=== PATIENT | male | born 1930 | race Caucasian/White ===

== ENCOUNTER 2016-11-23 15:35 | Emergency (ER) | payer BC, OTHER ==
--- NOTE | 2016-11-23 15:48 | PDOC ---
History of Present Illness <Ronnie Sánchez - Last Filed: 11/23/16 18:23> - General History Source: Patient Exam Limitations: No Limitations - History of Present Illness Initial Comments: 11/23/16 16:14 The patient is a 86 year old male, with significant past medical history of chronic leg pain, who presents today complaining of right leg pain that radiates to the lower back. The patient states that he has chronic right leg pain for years; however, the pain has never been like this or radiated to his back. The patient states that his right leg is more swollen than usual. Denies hematuria or any other urinary issues. Denies falling or any trauma. Denies fever, chills, nausea, vomiting. Allergies: none reported Surgical Hx: knee arthroscopy (over 20 years ago) PCP- Dr. Askew <Yamini Barclay - Last Filed: 11/23/16 18:28> - General Chief Complaint: Pain Stated Complaint: RIGHT LBP & LEG PAIN Time Seen by Provider: 11/23/16 15:48 Past History <Ronnie Sánchez - Last Filed: 11/23/16 18:23> <Yamini Barclay - Last Filed: 11/23/16 18:28> - Past Medical History Allergies/Adverse Reactions: Allergies Allergy/AdvReac Type Severity Reaction Status Date / Time No Known Allergies Allergy Verified 11/23/16 15:47 Home Medications: Ambulatory Orders Aspirin [ASA -] 325 mg PO DAILY 11/23/16 Ciprofloxacin [Cipro -] 250 mg PO BID #10 tablet 11/23/16 Review of Systems - Review of Systems Able to Perform ROS?: Yes Comments:: 11/23/16 16:15 CONSTITUTIONAL: No: Chills, Diaphoresis, Fever, Loss of Appetite HEENTM: No: Eye Pain, Blurred Vision, Nose Pain, Nose Bleeding RESPIRATORY: No: Cough, Orthopnea, Shortness of Breath, CARDIAC (ROS): No: Chest Pain, Edema, Irregular Heart Rate, Lightheadedness ABD/GI: No: Abd. Pain w/ defecation, Constipated, Diarrhea, Nausea, Vomiting, Indigestion MUSCULOSKELETAL: Yes: Back Pain, RLE pain. No: Gout, Joint Pain, Joint Swelling, Muscle Pain, Muscle Weakness, Neck Pain, Joint Stiffness, Other INTEGUMENTARY: No: Bruising, Change in Color, Change in Hair/Nails, Dryness, Erythema, Flushing, Lesions, Lumps, Pallor, Pruritus, Rash, Sweating, Other NEUROLGOICAL: No: Headache, Numbness, Paresthesia, Tingling, Tremors, Weakness , Unsteady Gait Dizziness <Yamini Barclay - Last Filed: 11/23/16 18:28> *Physical Exam - Vital Signs Last Vital Signs Temp Pulse Resp BP Pulse Ox 97.3 F L 72 18 175/92 98 11/23/16 15:46 11/23/16 15:46 11/23/16 15:46 11/23/16 15:46 11/23/16 15:46 - Physical Exam Comments: 11/23/16 16:15 GENERAL APPEARANCE: Yes: Appropriately Dressed, Nourished. No: Apparent Distress, HEENT: positive: EOMI, JOLENE, Normal ENT Inspection, Normal Voice, TMs Normal, Pharynx Normal. NECK: positive: Trachea midline, Normal Thyroid, Supple. negative: Tender, Rigid, Carotid bruit, Decreased range of motion RESPIRATORY/CHEST: positive: Lungs Clear, Normal Breath Sounds. negative: Decreased Breath Sounds, Crackles, Rales, Rhonchi, Stridor, Wheezing CARDIOVASCULAR: positive: Regular Rate, Regular Rhythm, S1, S2. negative: Edema , JVD VASCULAR PULSES: Femoral (R): 4+, Femoral (L): 4+, Carotid (R): 4+, Carotid (L) : 4+, Dorsalis-Pedis (R): 4+, Doralis-Pedis (L): 4+ Gastrointestinal/Abdominal: positive: Normal Bowel Sounds, Flat, Soft. MUSCULOSKELETAL: positive: Back has full ROM. No C-spine tenderness. No lumbar tenderness. Normal Inspection. EXTREMITY: positive: RLE: Right leg swollen with varicose veins. Minimal calf tenderness. Normal Capillary Refill, Normal Inspection, Normal Range of Motion. INTEGUMENTARY: positive: Normal Color, Dry, Warm. <Yamini Barclay - Last Filed: 11/23/16 18:28> ED Treatment Course - ADDITIONAL ORDERS Additional order review: 11/23/16 18:23 Pt has lower back pain , US leg negative for DVT. Physical exam unremarkable for spinous process tenderness on exam, full ROM, no neurological exam Denies incontinence and weakness, upon further review pt admits to urinary problems for last 2 weeks Has a UTI, will treat] If worsen will return to ER Family is in agreement with plan <Ronnie Sánchez - Last Filed: 11/23/16 18:23> - RADIOLOGY Radiograph Interpretation: 11/23/16 18:28 EXAM#: TYPE/EXAM: RESULT: [id number] US/DUPLEX VASCUL US-1 LEG Right leg swelling. Rule out DVT Right lower extremity Doppler venous ultrasound. Grayscale, pulsed Doppler and color Doppler interrogation of the right lower extremity deep venous system was performed. The right common femoral vein, superficial femoral vein, popliteal and posterior tibial vein were identified with a normal phasic waveform, adequate compressibility and adequate response to augmentation. Visualized portion of the greater saphenous and deep femoral vein are patent No Bryan's cyst is identified in the popliteal fossa. No specific calcified plaques in the right common femoral artery. Impression: There is no gross evidence of deep venous thromboses in the right lower extremity. Reported By: Lucina Posey MD 11/23/161817 <Yamini Barclay - Last Filed: 11/23/16 18:28> *DC/Admit/Observation/Transfer - Discharge Dispostion Admit: No <Ronnie Sánchez - Last Filed: 11/23/16 18:23> - Attestations Scribe Attestion: 11/23/16 16:16 Documentation prepared by AVEL Campbell, acting as medical transport specialist for Ronnie Sánchez MD. <Yamini Barclay - Last Filed: 11/23/16 18:28> Diagnosis at time of Disposition: Arthritis UTI (urinary tract infection) Qualifiers: Urinary tract infection type: acute cystitis Hematuria presence: without hematuria Qualified Code(s): N30.00 - Acute cystitis without hematuria - Discharge Dispostion Condition at time of disposition: Good - Prescriptions Prescriptions: Ciprofloxacin [Cipro -] 250 mg PO BID #10 tablet - Referrals Referrals: Laron Askew [Primary Care Provider] - - Patient Instructions Printed Discharge Instructions: Smoking Cessation for Older Adults: It's Not Too Late!, DI for Urinary Tract Infection (UTI) Additional Instructions: Fluids, rest, Tylenol Cipro 250 mg 2x/day for 5 days If worsen return to ER
[2016-11-23 16:06] VITALS: BP 175/92; PULSE 72; TEMP 97.3; BMI 19.2
[2016-11-23 16:52] LABS: URINE APPEARANCE Slightly; URINE BILIRUBIN Negative (NEGATIVE); URINE BLOOD 1+ (NEGATIVE); URINE GLUCOSE (UA) Negative (NEGATIVE); URINE KETONE Negative (NEGATIVE); URINE LEUK ESTERASE 3+ (NEGATIVE); URINE NITRITE Positive (NEGATIVE); URINE PROTEIN 1+ (NEGATIVE); URINE UROBILINOGEN 0.2 E.U/dl (0.2-1.0)
[2016-11-23 16:53] LABS: URINE COLOR YELLOW
[2016-11-23 17:14] LABS: URINE BACTERIA MODERATE /hpf (NEGATIVE); URINE WBC 50-80 (3-5)
[2016-11-23] MEDS ORDERED: CIPROFLOXACIN 250 MG TABLET (RESTRICTED TO ID) PO ONE ×2 (18:13→18:22)
== END 2016-11-23 18:33 | disposition home or self-care (01) ==
LOC: FER 15:35
DX: N30.00 Acute cystitis without hematuria (principal); M19.90 Unspecified osteoarthritis, unspecified site; G89.29 Other chronic pain; Z79.82 Long term (current) use of aspirin
CPT/HCPCS: 81003; 81015; 93971-TC; 99283-25

== ENCOUNTER 2016-12-16 08:56 | Day surgery (SDC) | payer OTHER ==
[2016-12-15 10:46] VITALS: BMI 19.9
[2016-12-16] MEDS ORDERED: DESFLURANE GAS 240 ML BOTTLE IH ONE (11:10)
[2016-12-16] MEDS ORDERED: PROPOFOL 20 ML ONE (11:11)
[2016-12-16] MEDS ORDERED: ceFAZolin SODIUM 1 GM VIAL IVPB ONE (11:22)
[2016-12-16] MEDS ORDERED: ceFAZolin SODIUM 1 GM VIAL ONE (11:24)
[2016-12-16] MEDS ORDERED: ONDANSETRON 4 MG/2 ML VIAL IVPUSH PRN (12:15)
[2016-12-16] MEDS ORDERED: oxyCODONE HCL 5 MG TABLET PO PRN (12:15)
[2016-12-16] MEDS ORDERED: LACTATED RINGERS SOLUTION 1,000 ML IV SCH (12:15)
[2016-12-16] MEDS ORDERED: FUROSEMIDE 40 MG/4 ML INJECTABLE VIAL ONE (12:25)
--- NOTE | 2016-12-16 13:23 | OP ---
Operative Note - Note: Operative Date: 12/16/16 Pre-Operative Diagnosis: BPH bladder calculus Operation: Lithopaxy of bladder stone Greenlight laser of prostate Findings: 1.5 cm bladder stone Post-Operative Diagnosis: Same as Pre-op Surgeon: Rocky Poon MD. Anesthesia: MAC Specimens Removed: Bladder stone Drains & Tubes with Location: 20 fr alexander Fluid Volume Replaced (mls): 600
[2016-12-16 13:46] VITALS: TEMP 97.4
[2016-12-16 14:57] VITALS: BP 103/57; PULSE 72
--- NOTE | 2016-12-17 15:05 | PATH ---
Surgical Pathology Report Patient Name: LIA VELARDE [facility]. Rec. #: [id number] /Age/Gender: 1930 (Age: 86) / M Account: [id number] Location: [facility] SURGICAL Taken: 12/16/2016 Received: 12/16/2016 Reported: 12/17/2016 Physicians: Rocky Poon M.D. Specimen(s) Received BLADDER STONE Clinical History BPH, bladder stone Final Diagnosis BLADDER STONES, EXTRACTION: CALCULI SUBMITTED FOR CHEMICAL ANALYSIS (gross only). Electronically Signed Edvin Crenshaw M.D. Gross Description Received fresh, labeled "bladder stones," is a 1.5 x 1.0 x 0.4 cm aggregate of stephens, irregular to fragmented calculi. The specimen is sent for chemical analysis. 12/16/201612/16/2016
--- NOTE | 2017-04-23 13:57 | OP ---
DATE OF OPERATION: 12/16/2016 PREOPERATIVE DIAGNOSIS: Benign prostatic hypertrophy, bladder stone. PROCEDURE: The patient was brought to the operating room and placed in the supine position. Once general anesthesia was administered the patient was transferred to the dorsal lithotomy position and prepped and draped in the standard sterile fashion. Preoperative antibiotics were given. At this time a 23-S[place] Arabian resectoscope sheath was placed into the bladder under direct visualization. The bladder was unremarkable. Using the Holmium laser the bladder stone was fragmented into small fragments and irrigated out with the Ellick evacuator. At this time, attention was turned toward the prostate. The prostate was then vaporized using the green light laser. This was accomplished with 10 seconds at the 2 and 6 o'clock position from the bladder neck to 1 cm proximal to the verumontanum. A 20-Saudi Arabian Petersen catheter was then placed to straight drainage. It was draining blood-tinged urine. The patient was brought to the Recovery Room in stable and satisfactory condition. Joseluis [id number]
== END 2016-12-16 15:10 | disposition home or self-care (01) ==
LOC: JASU-SURG 08:56
PROVIDERS: ATTEND Urology
PROC: 0VT08ZZ Resection of Prostate, Via Natural or Artificial Opening Endoscopic (ICD-10-PCS; principal; 2016-12-16 11:00)
PROC: 0TCB8ZZ Extirpation of Matter from Bladder, Via Natural or Artificial Opening Endoscopic (ICD-10-PCS; 2016-12-16 11:00)
PROC: 0VT08ZZ Resection of Prostate, Via Natural or Artificial Opening Endoscopic (ICD-10-PCS; 2016-12-16 11:00)
DX: N40.0 Benign prostatic hyperplasia without lower urinary tract symptoms (principal); N21.0 Calculus in bladder
CPT/HCPCS: 71020-TC; 88300-TC; 94760